=== PATIENT | male | born 1955 | race African-American/Black ===

== ENCOUNTER 2019-05-26 19:33 | Emergency (ER) | payer MEDICARE, SELFPAY ==
[2019-05-26 20:12] LABS: #Basophils 0.1 thou/uL (0.0-0.2); #Eosinphils 0.2 thou/uL (0.0-0.7); #Monocytes 0.5 thou/uL (0.11-0.59); #Neutrophils 5.4 thou/uL (1.40-6.50); %Basophils 1.2 % (0.0-1.0); %Eosinophils 2.5 % (0.0-10.0); %Lymphocytes 32.5 % (21.0-51.0); %Monocytes 5.8 % (0.0-10.0); %Neutrophils 58.1 % (42.0-75.0); Hemoglobin 11.8 g/dL (14.0-18.0); Mean Corpuscular HGB CONC 34.2 g/dL (32.0-36.0); Mean Corpuscular Hemoglobin 30.3 pg (27.0-31.0); Mean Corpuscular Volume 88.6 fL (78.0-98.0); Mean Platelet Volume 6.9 fL (7.4-10.4); Platelet Count 221 thou/uL (130-400); Red Blood Cell (RBC) Count 3.89 mill/uL (4.70-6.10); White Blood Cell (WBC) Count 9.4 thou/uL (4.8-10.8)
[2019-05-26 20:34] LABS: ALT (SGPT) 13 U/L (8-55); AST (SGOT) 21 U/L (5-34); Acetaminophen Less than 6.0 mcg/mL (10.0-30.0); Albumin 4.3 g/dL (3.4-4.8); Alcohol 166 mg/dL (Less than 10); Alkaline Phosphatase 83 U/L (40-150); Anion Gap 15 mmol/L (10-20); BUN (Urea Nitrogen) 7 mg/dL (8.4-25.7); Bilirubin, Total 0.5 mg/dL (0.2-1.2); Calc. Creatinine Clearance 0 mL/min (70-130); Calcium 9.5 mg/dL (7.8-10.44); Carbon Dioxide 23 mmol/L (23-31); Chloride 101 mmol/L (98-107); Estimated GFR-MDRD Greater than 90; Globulin 3.1 g/dL (2.4-3.5); Glucose 93 mg/dL (80-115); Potassium 3.3 mmol/L (3.5-5.1); Protein, Total 7.4 g/dL (5.8-8.1); Salicylate Less than 8.0 mg/dL (15.0-30.0); Sodium 136 mmol/L (136-145)
--- NOTE | 2019-05-26 21:04 | CT ---
BRAIN CT WITHOUT IV CONTRAST: 05/26/19 HISTORY: Neck and right shoulder pain following an injury from a fall. COMPARISON: 02/05/12. FINDINGS: Minimal motion artifact. No focal mass or midline shift. No intra or extra-axial hemorrhage. Sinuses and mastoids are clear of acute process with mild ethmoid sinus mucosal thickening. Partially visuali zed circumscribed 0.7 cm defect in the right anterior maxilla incompletely seen on this study which m ay related to periodontal issues. IMPRESSION: No significant acute intracranial process. No mass or bleed. POS: DAMIAN
--- NOTE | 2019-05-26 21:20 | CT ---
CERVICAL SPINE CT SCAN WITHOUT IV CONTRAST: 05/26/19 HISTORY: Neck injury and pain following trauma, fall. COMPARISON: 07/14/14. FINDINGS: There is very extensive anterior disc osteophytosis with bony bridging evidence for DISH. In addition , there is some minimal ossification of portions of the posterior longitudinal ligament. No evidence for acute fracture or facet dislocation. There is some probable mild enlargement, at least borderline appearing right and left thyroid gland, incompletely seen. IMPRESSION: No evidence for acute fracture or dislocation. 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 Probable thyroid gland enlargement, incompletely seen on this study. POS: ORION
== END 2019-05-26 21:11 | disposition home or self-care (01) ==
LOC: ERS 19:33
DX: S16.1XXA Strain of muscle, fascia and tendon at neck level, initial encounter (principal); F10.129 Alcohol abuse with intoxication, unspecified; E11.9 Type 2 diabetes mellitus without complications; I10 Essential (primary) hypertension; F17.210 Nicotine dependence, cigarettes, uncomplicated; W18.2XXA Fall in (into) shower or empty bathtub, initial encounter
CPT/HCPCS: 36415; 70450; 72125; 80053; 80307; 85025

== ENCOUNTER 2020-04-25 17:12 | Emergency (ER) | payer MEDICARE ==
[~2020-04-25 17:12] MED LIST: Iopamidol-370 76% 500 ML 1 ML ONE
[2020-04-25 17:45] LABS: #Basophils 0.1 thou/uL (0.0-0.2); #Eosinphils 0.1 thou/uL (0.0-0.7); #Lymphocytes 1.9 thou/uL (1.20-3.40); #Monocytes 0.6 thou/uL (0.11-0.59); #Neutrophils 7.6 thou/uL (1.40-6.50); %Basophils 0.6 % (0.0-1.0); %Eosinophils 0.6 % (0.0-10.0); %Lymphocytes 18.3 % (21.0-51.0); %Monocytes 5.6 % (0.0-10.0); %Neutrophils 74.8 % (42.0-75.0); Hemoglobin 11.6 g/dL (14.0-18.0); Mean Corpuscular HGB CONC 32.8 g/dL (32.0-36.0); Mean Corpuscular Hemoglobin 28.8 pg (27.0-31.0); Mean Corpuscular Volume 87.7 fL (78.0-98.0); Mean Platelet Volume 7.6 fL (7.4-10.4); Platelet Count 232 thou/uL (130-400); RBC Distribution Width 12.1 % (11.5-14.5); Red Blood Cell (RBC) Count 4.04 mill/uL (4.70-6.10); White Blood Cell (WBC) Count 10.1 thou/uL (4.8-10.8)
[2020-04-25 18:04] LABS: ALT (SGPT) 16 U/L (8-55); AST (SGOT) 21 U/L (5-34); Albumin 4.5 g/dL (3.4-4.8); Alkaline Phosphatase 88 U/L (40-110); Anion Gap 16 mmol/L (10-20); BUN (Urea Nitrogen) 11 mg/dL (8.4-25.7); Bilirubin, Total 0.5 mg/dL (0.2-1.2); Calc. Creatinine Clearance 0 mL/min (70-130); Calcium 9.6 mg/dL (7.8-10.44); Carbon Dioxide 23 mmol/L (23-31); Chloride 96 mmol/L (98-107); Estimated GFR-MDRD 69; Globulin 3.2 g/dL (2.4-3.5); Glucose 104 mg/dL (80-115); Potassium 3.6 mmol/L (3.5-5.1); Protein, Total 7.7 g/dL (5.8-8.1); Sodium 131 mmol/L (136-145)
--- NOTE | 2020-04-25 19:01 | CT ---
CT Abdomen Pelvis W Con History: Epigastric pain Comparison: CT 2012 Findings: Lung bases are clear. No pericardial effusion. Mild wall thickening, circumferential submuc osal edema of the distal esophagus. Subtle peripheral hypodensity hepatic segment 2 adjacent to the capsule incompletely evaluated axial image 16 measures less than a millimeter. Portal vein is patent. Aortic contour is nonaneurysmal. Moderate stool burden of the rectum. There is pneumatosis of the cecal apex. The superior mesenteric artery is patent. Severe facet arthro sis lower lumbar spine. Multilevel degenerative disc space height loss. Moderate degenerative changes of both hips. No hydronephrosis. Adrenal glands are unremarkable. Impression: 1. Cecal apex pneumatosis around what appears be unformed stool. No portal venous gas and patent supe rior mesenteric artery. Recommend correlation with lactic acid levels although given the absent significant distention, it is unlikely that this pneumatosis is sequelae of necrotizing enterocolitis /ischemia and may reflect findings of benign causes such as scleroderma or asthma. Follow-up recommended. 2. Circumferential wall thickening with submucosal edema of the mid and distal esophagus suggestive o f esophagitis. Upper endoscopy may be beneficial. 3. Subtle peripheral subcapsular hypodensity of the hepatic segment 2 measuring 11 mm. Nonemergent fo llow-up liver protocol MRI in 3-6 months is recommended given patient history of hepatitis.
--- NOTE | 2020-04-25 19:04 | RAD ---
CHEST ONE VIEW: 04/25/20 HISTORY: Epigastric discomfort. COMPARISON: 01/25/13. FINDINGS: Normal cardiac silhouette. Lungs and pleural bases are clear. No pneumothorax or acute osseous abnorm alities. IMPRESSION: No acute cardiopulmonary process. POS: PPP
== END 2020-04-25 20:02 | disposition home or self-care (01) ==
LOC: ERS 17:12
DX: K76.9 Liver disease, unspecified (principal); R55 Syncope and collapse; R93.3 Abnormal findings on diagnostic imaging of other parts of digestive tract; R10.13 Epigastric pain; E11.9 Type 2 diabetes mellitus without complications; I10 Essential (primary) hypertension; F17.210 Nicotine dependence, cigarettes, uncomplicated; Z79.84 Long term (current) use of oral hypoglycemic drugs; Z79.899 Other long term (current) drug therapy; Z79.82 Long term (current) use of aspirin
CPT/HCPCS: 71045; 74177; 80053; 83690; 84484; 85025; 93005; 94760; 96360; Q9967

== ENCOUNTER 2021-04-18 18:35 | Emergency (ER) | payer MEDICARE ==
[~2021-04-18 18:35] MED LIST changes: +Iopamidol 370 76% 100 ML VIAL ONE; -Iopamidol-370 76% 500 ML 1 ML ONE
[2021-04-18] MEDS ORDERED: Morphine 4 MG/ML VIAL ONE (19:08)
[2021-04-18] MEDS ORDERED: Ondansetron PF 4 MG/2 ML Vial ONE (19:08)
[2021-04-18 19:29] LABS: #Eosinphils 0.1 thou/uL (0.0-0.7); #Lymphocytes 2.3 thou/uL (1.20-3.40); #Monocytes 0.6 thou/uL (0.11-0.59); #Neutrophils 6.3 thou/uL (1.40-6.50); %Basophils 0.2 % (0.0-1.0); %Eosinophils 1.3 % (0.0-10.0); %Lymphocytes 24.5 % (21.0-51.0); %Monocytes 6.4 % (0.0-10.0); %Neutrophils 67.6 % (42.0-75.0); Hemoglobin 12.3 g/dL (14.0-18.0); Mean Corpuscular HGB CONC 34.3 g/dL (32.0-36.0); Mean Corpuscular Hemoglobin 29.7 pg (27.0-31.0); Mean Corpuscular Volume 86.5 fL (78.0-98.0); Mean Platelet Volume 6.9 fL (7.4-10.4); Platelet Count 315 thou/uL (130-400); RBC Distribution Width 12.1 % (11.5-14.5); Red Blood Cell (RBC) Count 4.15 mill/uL (4.70-6.10); White Blood Cell (WBC) Count 9.3 thou/uL (4.8-10.8)
[2021-04-18 19:48] LABS: ALT (SGPT) 8 U/L (8-55); AST (SGOT) 14 U/L (5-34); Albumin 4.3 g/dL (3.4-4.8); Alkaline Phosphatase 75 U/L (40-110); Anion Gap 13 mmol/L (10-20); BUN (Urea Nitrogen) 9 mg/dL (8.4-25.7); Bilirubin, Total 0.4 mg/dL (0.2-1.2); Calc. Creatinine Clearance 0 mL/min (70-130); Calcium 9.6 mg/dL (7.8-10.44); Carbon Dioxide 26 mmol/L (23-31); Chloride 97 mmol/L (98-107); Globulin 3.4 g/dL (2.4-3.5); Glucose 159 mg/dL (80-115); Lipase 62 U/L (8-78); Potassium 3.8 mmol/L (3.5-5.1); Protein, Total 7.7 g/dL (5.8-8.1); Sodium 132 mmol/L (136-145)
[2021-04-18 20:58] LABS: Bilirubin Negative (Negative); Blood, Urine Negative (Negative); Clarity Clear (Clear); Glucose, Urine (Dipstick) Normal (Negative); Ketone, Urine Negative (Negative); Leukocyte Negative Leu/uL (Negative); Nitrite Negative (Negative); Protein, Urine (Dipstick) Negative (Neg-Trace); Urobilinogen Normal mg/dL (Less than 2); pH, Urine 5.5 (5.0-9.0)
== END 2021-04-18 21:21 | disposition home or self-care (01) ==
LOC: ERS 18:35
DX: K59.00 Constipation, unspecified (principal); I10 Essential (primary) hypertension; E11.9 Type 2 diabetes mellitus without complications; M06.9 Rheumatoid arthritis, unspecified; F17.210 Nicotine dependence, cigarettes, uncomplicated; Z87.19 Personal history of other diseases of the digestive system; Z79.84 Long term (current) use of oral hypoglycemic drugs; Z79.82 Long term (current) use of aspirin; Z79.899 Other long term (current) drug therapy
CPT/HCPCS: 74177; 80053; 81003; 83690; 84484; 85025; 93005; 96374; 96375; J2270; J2405; Q9967